=== PATIENT | male | born 1960 | race Caucasian/White ===

== ENCOUNTER 2021-10-28 06:43 | Outpatient (CLI) | payer OTHER, SELFPAY ==
--- NOTE | 2021-10-28 08:24 | W.ANESCHARGE ---
Anesthesia Charges Start Date/Time Anesthesia Start Date: 10/28/21 Anesthesia Start Time: 07:35 Stop Date/Time Anesthesia Stop Date: 10/28/21 Anesthesia Stop Time: 08:19 Summary Emergency: No
--- NOTE | 2021-10-28 10:48 | W.ANESCHARGE ---
Anesthesia Charges Start Date/Time Anesthesia Start Date: 10/28/21 Anesthesia Start Time: 07:35 Stop Date/Time Anesthesia Stop Date: 10/28/21 Anesthesia Stop Time: 08:19 Summary Emergency: No
== END 2021-10-28 06:44 | disposition home or self-care (01) ==
LOC: OP CLINIC 06:45
PROVIDERS: PCP Family Medicine; Visit Provider Surgery
DX: Z12.11 Encounter for screening for malignant neoplasm of colon (principal); K57.30 Diverticulosis of large intestine without perforation or abscess without bleeding; K31.7 Polyp of stomach and duodenum; Z87.11 Personal history of peptic ulcer disease
CPT/HCPCS: 43239; 45378; 811; 813; 88305; J2704